=== PATIENT | male | born 2005 | race Hispanic/Latino ===

== ENCOUNTER 2024-10-21 16:10 | Emergency (ER) | payer SELFPAY ==
--- NOTE | ~2024-10-21 | US_ITS ---
EXAMINATION: US abdomen limited DATE: 10/21/2024 18:08 INDICATION: RUQ pain TECHNIQUE: Multiple grayscale and Doppler ultrasound images of limited portions of the abdomen were o btained. COMPARISON: CT abdomen and pelvis, same date. FINDINGS: The visualized portions of the pancreas are normal. The liver is normal with normal echogen icity and echotexture. No surface nodularity. Normal hepatopetal flow in the main portal vein. The ga llbladder is contracted with multiple intraluminal echogenic shadowing foci. No pericholecystic fluid . The common bile duct measures 3 mm. There was no sonographic Driscoll sign. IMPRESSION: Contracted gallbladder with multiple gallstones. Reviewed, dictated and finalized at location [facility]
[2024-10-21 16:23] VITALS: BP 120/78; PULSE 106; RESP 18; TEMP 36.7; O2SAT 100
--- NOTE | 2024-10-21 17:35 | ED.ABDPAIN ---
HPI - Abdominal Pain General Chief Complaint: Abdominal Pain Stated Complaint: abd pain Focused HPI: This is a 19 yo M who presents to the ED for chief complaint of abdominal pain and black stools. States he was here last night for the same and they kicked me out. Pt states today he is having some more upper abdominal pain that feels like gas pains. Denies any other interval development of symptoms. taking imodium at home GENERAL: Well-appearing, well-nourished, and in no acute distress. HEAD: Normocephalic, atraumatic. CHEST: Clear to auscultation. ?No respiratory distress. HEART: Regular rate and rhythm.? NEURO: ?Alert and oriented x3. Patient screened in triage and initial orders placed.? ?Additional care and disposition to be based upon?diagnostic testing and treatment. Related Data Allergies Allergy/AdvReac Type Severity Reaction Status Date / Time No Known Allergies Allergy Verified 10/20/24 21:19 Course Vital Signs Vital signs: Vital Signs Temperature 98.0 F 10/21/24 16:23 Pulse Rate 106 H 10/21/24 16:23 Respiratory Rate 18 10/21/24 16:23 Blood Pressure 120/78 10/21/24 16:23 Pulse Oximetry 100 10/21/24 16:23 Oxygen Delivery Room Air 10/21/24 16:23 Temperature 98.0 F 10/21/24 16:23 Pulse Rate 106 H 10/21/24 16:23 Respiratory Rate 18 10/21/24 16:23 Blood Pressure 120/78 10/21/24 16:23 Pulse Oximetry 100 10/21/24 16:23 Oxygen Delivery Room Air 10/21/24 16:23 Discharge Plan Discharge Instructions: Antibiotic Form Patient Language: Nepali Prescriptions: No Action pantoprazole [Protonix] 40 mg tablet,delayed release (DR/EC) 40 mg PO HS 28 Days Qty: 28 0RF Follow-up/Referrals: PHYSICIAN,ALUMINA REFINERY OPERATOR [Primary Care Provider] -
--- NOTE | 2024-10-21 18:07 | PC.NURSE ---
Patient not cooperative while trying to dry blood. Patient stating, I don't know why you can't just do your job , while this RN attempting to obtain blood with butterfly needle. Patient flexing hand up and moving whenever RN attempted to access vein in hand. Patient stating, this is taking too damn long, man . Needle retracted, site dressed, and patient sent to lobby.
--- NOTE | 2024-10-21 21:05 | PC.NURSE ---
ENOC Hopkins and Harriet called out for pt out in triage to take back to a room. Pt did not respond to call both times. Pt walked out before being seen.
== END 2024-10-22 00:33 | disposition left against medical advice (07) ==
PROVIDERS: Emergency Provider Physician Assistant
DX: R10.10 Upper abdominal pain, unspecified (principal)
CPT/HCPCS: 76705; 99199; 99284